=== PATIENT | male | born 1985 | race Caucasian/White ===

== ENCOUNTER 2016-11-24 04:35 | Observation (INO) | payer BC ==
[~2016-11-24] VITALS: Ht 177.8 cm; Wt 101.3 kg
[2016-11-24] VITALS (12 sets, daily range): BP systolic 139–176; BP diastolic 71–92; PULSE 70–98; TEMP 98–98.6
[2016-11-24] MEDS ORDERED: ZANTAC 150MG T150 MG PO (04:39)
[2016-11-24 05:21] LABS: BASO # 0.1 (0.0-0.2); BASO % 0.4 % (0.0-2.0); EOS % 0.3 % (0-4.0); GRAN # 13.4 (1.4-6.5); GRAN % 84.2 % (42.2-75.2); HEMATOCRIT 47.4 % (42.0-52.0); HEMOGLOBIN 16.2 g/dl (13.5-18.0); LYMPH # 1.7 (1.2-3.4); LYMPH % 10.6 % (20.0-51.0); MEAN CELL VOLUME 81 fl (80.0-100.0); MEAN CORPUSCULAR HEMOGLOBIN 28 pg (27.0-31.0); MEAN CORPUSCULAR HGB CONC 34 g/dl (33.0-37.0); MEAN PLATELET VOLUME 9.5 fl (7.4-10.4); MONO # 0.7 (0.1-0.6); MONO % 4.2 % (1.7-9.3); PLATELET COUNT 234 K/mm3 (130-400); RED BLOOD COUNT 5.87 M/mm3 (4.20-5.60); REDCELL DISTRIBUTION WIDTH-CV 12.9 % (11.5-14.5); WHITE BLOOD COUNT 15.9 K/mm3 (4.8-10.8)
[2016-11-24 05:28] LABS: ADJUSTED CALCIUM 9.1 mg/dL (8.4-10.2); ALBUMIN 4.9 gm/dL (3.5-5.0); BILIRUBIN,TOTAL 0.9 mg/dL (0.0-1.0); CALCIUM 9.8 mg/dL (8.4-10.2); CREATININE, serum 1.21 mg/dL (0.66-1.25); PH 5 (5-8); POTASSIUM 3.5 mmol/L (3.4-5.0); SQUAMOUS EPITHELIAL 0-2 /hpf; TOTAL PROTEIN 8.4 gm/dL (6.4-8.2); URINE APPEARANCE Hazy; URINE BACTERIA None Seen /hpf; URINE BILIRUBIN Negative (NEGATIVE); URINE BLOOD 2+ (NEGATIVE); URINE COLOR Amber; URINE GLUCOSE Negative (NEGATIVE); URINE KETONE Trace (NEGATIVE); URINE RBC >50 /hpf; URINE UROBILINOGEN Negative (NEGATIVE)
== END 2016-11-24 20:30 | disposition home or self-care (01) ==
LOC: COL.ER 04:35 → MEDICAL 06:45
PROVIDERS: Emergency Medicine
DX: N20.1 Calculus of ureter (principal); K21.9 Gastro-esophageal reflux disease without esophagitis
CPT/HCPCS: C1769; G0378; J0690; J0696; J1170; J1885; J2405; J2704; J2765; J3010; J7030; J7120; Q9967